=== PATIENT | male | born 1990 | race Caucasian/White ===

== ENCOUNTER 2020-06-29 14:46 | Emergency (ER) | payer SELFPAY ==
--- NOTE | ~2020-06-29 | XR_ITS ---
EXAMINATION: XR chest 2V DATE: 06/29/2020 17:06 INDICATION: Left chest pain. TECHNIQUE: Frontal and lateral views of the chest were obtained. COMPARISON: Chest 2 views 12/25/2013 FINDINGS: The chest demonstrates clear lungs without pneumonia, pleural effusion, or pneumothorax. Th e heart size is normal. IMPRESSION: 1. No acute cardiopulmonary disease. Reviewed, dictated and finalized at location A. ENGINEER
[2020-06-29 14:54] VITALS: BP 132/73; PULSE 84; RESP 18; TEMP 36.6; O2SAT 100
--- NOTE | 2020-06-29 14:59 | ECG_ITS ---
Measurements Intervals Tracy Rate: 73 P: 57 NM: 145 QRS: 68 QRSD: 93 T: 43 QT: 356 QTc: 392 Interpretive Statements SINUS RHYTHM NORMAL ECG Electronically Signed On 06-29-2020 20:00:45 BUILDING ATTENDANT by Remy Zarco D.O.
[2020-06-29 16:20] LABS: Basophils Absolute Auto 0.1 K/mm3 (0.0-0.1); Basophils Percent Auto 0.8 % (0.2-1.2); Eosinophils Absolute Auto 0.4 K/mm3 (0-0.3); Eosinophils Percent Auto 4.7 % (0-4.4); Hematocrit 44.9 % (42.0-52.0); Immature Granulocyte Absolute 0.01 K/mm3 (0.00-0.031); Immature Granulocyte Percent A 0.1 % (0-0.5); Lymphocytes Absolute Auto 2.87 K/mm3 (0.9-3.2); Lymphocytes Percent Auto 37.6 % (18.3-44.2); Mean Corpuscular HGB Conc 35.6 g/dl (32-36); Mean Corpuscular Hemoglobin 30.1 pg (26-34); Mean Corpuscular Volume 84.6 fl (80-100); Mean Platelet Volume 10.8 fl (7.4-10.4); Monocytes Absolute Auto 0.6 K/mm3 (0.1-0.6); Monocytes Percent Auto 7.2 % (2.6-8.5); Neutrophils Absolute Auto 3.8 K/mm3 (1.3-6.7); Neutrophils Percent Auto 49.6 % (45.5-73.1); Platelet Count Result 233 k/mm3 (150-375); Red Blood Count 5.31 M/mm3 (4.6-6.20); Red Cell Distribution Width 11.9 % (11.5-14.5); White Blood Count 7.6 K/mm3 (4.5-10.0)
[2020-06-29 16:30] LABS: INR 0.9
[2020-06-29 16:31] LABS: Partial Thromboplastin Time 28.7 SECONDS (22.3-36.8)
[2020-06-29 16:33] LABS: Anion Gap 9 mmol/L (8-16); Blood Urea Nitrogen 13 mg/dL (9-20); Calcium 8.9 mg/dL (8.4-10.2); Carbon Dioxide 28 mmol/L (22-30); Chloride 101 mmol/L (98-107); Estimated CRCL calculation 86 ml/min; Estimated Glomerular Filt Rate > 60; Glucose 100 mg/dL (75-110); Potassium 3.7 mmol/L (3.4-5.0); Sodium 138 mmol/L (137-145)
[2020-06-29 16:44] LABS: Troponin I < 0.012 ng/mL (0.000-0.034)
== END 2020-06-29 16:10 | disposition left against medical advice (07) ==
PROVIDERS: Emergency Provider Emergency Medicine
DX: R07.9 Chest pain, unspecified (principal)
CPT/HCPCS: 36415; 71046; 80048; 84484; 85025; 85610; 85730; 93005; 99199

== ENCOUNTER 2023-07-05 18:06 | Emergency (ER) | payer OTHER, SELFPAY ==
--- NOTE | ~2023-07-05 | CT_ITS ---
CT of the Abdomen and Pelvis: Indication: Abdominal pain Technique: 2.5 mm axial scans were obtained through the abdomen and pelvis following intravenous adm inistration of 100 cc of Omnipaque 350. Dose reduction technique was used on this scan by utilizing a utomated exposure control and iterative reconstruction technique. The dose-length product (DLP) was 4 93.52 mGy-cm. Findings: Scans through the lung bases are unremarkable. The liver, spleen, pancreas, adrenals and kidneys are within normal limits. Probable small gallstones . No evidence of aortic aneurysm. No lymphadenopathy. No bowel obstruction or bowel wall thickening. There is no evidence to suggest acute appendicitis. Images through the pelvis were performed. Urinary bladder unremarkable. No pelvic mass seen. No ascit es. Impression: Cholelithiasis. Reviewed, dictated and finalized at location . HT TEST SHOP MECHANIC Impression: Cholelithiasis.
[2023-07-05 18:12] VITALS: BP 133/68; PULSE 74; RESP 16; TEMP 36.2; O2SAT 97
--- NOTE | 2023-07-05 22:32 | ED.GENADULT ---
HPI - General Adult General Chief complaint: Abdominal Pain Stated complaint: vomiting/frontal headache x 1 week Time Seen by Provider: 07/05/23 22:11 Source: patient Mode of arrival: ambulatory Limitations: no limitations History of Present Illness HPI narrative: This is a 33-year-old male who presents to the ED with chief complaint of abdominal pain x1 week. Patient reports that he started having both a severe frontal headache and abdominal pain are the time of Thanksgiving. Reports that the last couple of days he has been having more vomiting and is currently nauseous. Reports that his urine is darker in color he feels very dehydrated. Reports taking multiple [id number] meds with no relief. Reports he was having fevers a few days ago but none since. Denies cough or sore throat. Denies neck pain, numbness, weakness, diarrhea, urinary problems. Related Data Allergies Allergy/AdvReac Type Severity Reaction Status Date / Time No Known Allergies Allergy Unknown Verified 03/29/15 18:38 Review of Systems Review of Systems: All systems as dictated in HPI Exam Narrative: GENERAL: Well-appearing, well-nourished, and in no acute distress. HEAD: Normocephalic, atraumatic. Bilateral frontal temporal tenderness. No skin changes. EYES: PERRLA and EOMI. ENT: Nares clear, no rhinorrhea or epistaxis. Mucous membranes moist. Oropharynx without tonsillar hypertrophy exudate or other lesions. NECK: Supple. No adenopathy or masses. No meningeal signs CHEST: No respiratory distress. Clear to auscultation. No wheezes rales or rhonchi HEART: Regular rate and rhythm. No murmur heard. Normal peripheral pulses. ABDOMEN: Left lower quadrant tenderness present. Soft, nontender, nondistended, normal active bowel sounds. MSK: Normal range of motion. No edema. SKIN: Warm, dry, no rash. NEURO: Alert and oriented x3. No focal deficits. PSYCH: Normal mood and affect. Course Course Emergency Course: Re-evaluation 0 117: Feeling improved and ready to go home. Vital Signs Vital signs: Vital Signs Temperature 97.2 F L 07/05/23 18:12 Pulse Rate 74 07/05/23 18:12 Respiratory Rate 16 07/05/23 18:12 Blood Pressure 133/68 07/05/23 18:12 Pulse Oximetry 97 07/05/23 18:12 Oxygen Delivery Room Air 07/05/23 18:12 Temperature 97.2 F L 07/05/23 18:12 Pulse Rate 88 07/06/23 01:38 Respiratory Rate 19 07/06/23 01:38 Blood Pressure 133/77 07/06/23 01:38 Pulse Oximetry 95 07/06/23 01:38 Oxygen Delivery Room Air 07/05/23 18:12 Medical Decision Making MDM Narrative Medical decision making narrative: This is a 33 year male who presents to the ED with chief complaint of abdominal pain, vomiting and headache. Vitals are normal. Lab workup grossly unremarkable. Viral swabs are negative. CT abdomen pelvis was ordered as patient did have focal left lower quadrant tenderness. CT abdomen pelvis with contrast: No bowel obstruction or inflammatory changes along the GI tract. Moderate colonic stool burden. No free fluid or fluid collection. Cholelithiasis without cholecystitis. No biliary dilatation. Liver, spleen pancreas and kidneys are un remarkable. Patient improved greatly with Zofran, pain meds and fluids here. Overall symptoms are consistent with constipation and potentially a migraine versus tension headache. He may also viral syndrome going as well as this started after being family on gi. Prescription for MiraLax, Colace, Tylenol, ibuprofen given. Pt will be discharged in stable condition. Return precautions given and supportive measures discussed. Pt is understanding and agreeable with plan for discharge and follow-up with PCP. Vital Signs Vital Signs: Vital Signs Temperature 97.2 F L 07/05/23 18:12 Pulse Rate 74 07/05/23 18:12 Respiratory Rate 16 07/05/23 18:12 Blood Pressure 133/68 07/05/23 18:12 Pulse Oximetry 97 07/05/23 18:12 Oxygen Delivery
[2023-07-05 22:46] LABS: Basophils Absolute Auto 0.1 K/mm3 (0.0-0.1); Basophils Percent Auto 0.5 % (0.2-1.2); Eosinophils Absolute Auto 0.1 K/mm3 (0-0.3); Eosinophils Percent Auto 0.8 % (0-4.4); Hematocrit 43.1 % (42.0-52.0); Hemoglobin 14.7 g/dL (14.0-18.0); Immature Granulocyte Absolute 0.04 K/mm3 (0.00-0.031); Immature Granulocyte Percent A 0.4 % (0-0.5); Lymphocytes Absolute Auto 3.42 K/mm3 (0.9-3.2); Mean Corpuscular HGB Conc 34.1 g/dl (32-36); Mean Corpuscular Hemoglobin 29.2 pg (26-34); Mean Corpuscular Volume 85.7 fl (80-100); Mean Platelet Volume 10.3 fl (7.4-10.4); Monocytes Absolute Auto 0.7 K/mm3 (0.1-0.6); Monocytes Percent Auto 6.9 % (2.6-8.5); Neutrophils Absolute Auto 5.8 K/mm3 (1.3-6.7); Neutrophils Percent Auto 57.4 % (45.5-73.1); Platelet Count Result 240 k/mm3 (150-375); Red Blood Count 5.03 M/mm3 (4.6-6.20); Red Cell Distribution Width 11.9 % (11.5-14.5); White Blood Count 10.1 K/mm3 (4.5-10.0)
[2023-07-05 22:59] LABS: Alanine Aminotransferase 35 U/L (6-50); Albumin Level 4.5 g/dL (3.5-5.1); Alkaline Phosphatase 61 U/L (38-126); Anion Gap 9 mmol/L (8-16); Aspartate Amino Transferase 31 U/L (17-59); Bilirubin,Total 1.3 mg/dL (0.2-1.3); Blood Urea Nitrogen 16 mg/dL (9-20); Carbon Dioxide 27 mmol/L (22-30); Chloride 101 mmol/L (98-107); Estimated CRCL calculation 113 ml/min; Estimated Glomerular Filt Rate > 60; Glucose 108 mg/dL (65-110); Lipase 43 U/L (23-300); Potassium 3.7 mmol/L (3.4-5.0); Sodium 137 mmol/L (137-145)
[2023-07-05] MEDS: ONDANSETRON INJ 4 MG/2 ML VIAL IV PUSH (22:59)
[2023-07-05] MEDS: MORPHINE SULFATE (*CRX) 4 MG/ML INJ IV PUSH (22:59)
[2023-07-05] MEDS: SODIUM CHLORIDE 0.9% IV 1,000 ML 999 ML IV CONT (22:59)
[2023-07-05 23:00] LABS: Prothrombin Time 14.1 Seconds (11.1-14.7)
[2023-07-05 23:44] LABS: Influenza A QL RT-PCR Negative (Negative); Influenza B QL RT-PCR Negative (Negative); RSV RNA, RT-PCR Negative (Negative); SARS-CoV-2 RNA PCR Negative (Negative)
[2023-07-06 01:38] VITALS: BP 133/77; PULSE 88; RESP 19; O2SAT 95
== END 2023-07-06 01:40 | disposition home or self-care (01) ==
PROVIDERS: Emergency Provider Physician Assistant
DX: K59.00 Constipation, unspecified (principal); R51.9 Headache, unspecified; Z20.822 Contact with and (suspected) exposure to COVID-19
CPT/HCPCS: 36415; 74177; 80053; 83690; 85025; 85610; 85730; 87637; 96361; 96374; 96375; 99284; J2270; J2405; J7030; Q9967